=== PATIENT | female | born 1975 | race Caucasian/White ===

== ENCOUNTER 2021-08-08 20:59 | Emergency (ER) | payer SELFPAY ==
[~2021-08-08] VITALS: Ht 160 cm; Wt 68.0 kg
[~2021-08-08 20:59] MED LIST: CARI-277; MORP1TAB14; VENL150C3; ZOLP10TA; [UNRECOGNIZED DRUG - CODE]
[2021-08-08] MEDS ORDERED: KETOROLAC TROMETH 60MG/2ML VIAL IM ONE (21:30)
[2021-08-08 22:26] VITALS: BP 107/68
== END 2021-08-08 22:21 | disposition home or self-care (01) ==
LOC: ER 20:59
DX: S83.92XA Sprain of unspecified site of left knee, initial encounter (principal); F17.210 Nicotine dependence, cigarettes, uncomplicated; X50.0XXA Overexertion from strenuous movement or load, initial encounter; Y93.89 Activity, other specified; Y92.89 Other specified places as the place of occurrence of the external cause; Y99.8 Other external cause status
CPT/HCPCS: 73562; 96372; 99283; J1885

== ENCOUNTER 2021-10-08 00:01 | Emergency (ER) | payer SELFPAY ==
[~2021-10-08] VITALS: Ht 160 cm; Wt 62.6 kg
[2021-10-08 00:26] VITALS: BP 111/77
[2021-10-08 02:48] LABS: Basophils # (auto) 0 10 ^3/uL (0-0.2); Basophils % (auto) 0.5 % (0.0-2.0); Eosinophils # (auto) 0.2 10 ^3/uL (0-0.8); Eosinophils % (auto) 2.1 % (0.0-7.0); Hematocrit 38.7 % (36.0-46.0); Hemoglobin 12.7 g/dL (12.2-16.2); Lymphocytes # (auto) 3.3 10 ^3/uL (0.4-5.4); Lymphocytes % (auto) 33.5 % (10.0-50.0); Mean Corpuscular Hemoglobin 29.3 pg (28.0-32.0); Mean Corpuscular Hgb Conc. 32.8 g/dL (32.0-36.0); Mean Corpuscular Volume 89.3 fL (80.0-100.0); Monocytes # (auto) 0.8 10 ^3/uL (0-1.3); Monocytes % (auto) 8.4 % (0.0-12.0); Neutrophils # (auto) 5.5 10 ^3/uL (1.6-8.6); Neutrophils % (auto) 55.5 % (37.0-80.0); Red Blood Cells 4.34 10^6/uL (4.0-5.20); Red Cell Distribution Width 13.5 % (11.8-14.3); White Blood Cell 9.8 10^3/uL (4.4-10.8)
[2021-10-08 03:03] LABS: Albumin 3.5 g/dL (3.4-5.0); BUN/Creatinine Ratio 22.9; Calcium 9.9 mg/dL (8.5-10.1); Potassium 4.3 mmol/L (3.5-5.1)
[2021-10-08 03:06] LABS: Bilirubin, Total 0.2 mg/dL (0.2-1.0); Total Protein 6.4 g/dL (6.4-8.2)
[2021-10-08 03:08] LABS: Urine Bacteria NONE SEEN /hpf (None Seen); Urine Blood Negative /uL (Negative); Urine Specific Gravity 1.013 (1.001-1.035); Urine WBC <1 /hpf (0 - 5)
== END 2021-10-08 04:57 | disposition left against medical advice (07) ==
LOC: ER 00:01
DX: R10.30 Lower abdominal pain, unspecified (principal); Z53.21 Procedure and treatment not carried out due to patient leaving prior to being seen by health care provider
CPT/HCPCS: 36415; 80053; 81001; 81025; 83690; 85025

== ENCOUNTER 2021-10-18 22:07 | Emergency (ER) | payer SELFPAY ==
[~2021-10-18] VITALS: Ht 160 cm; Wt 65.3 kg
[2021-10-18 22:09] VITALS: BP 112/59
== END 2021-10-19 03:53 | disposition left against medical advice (07) ==
LOC: ER 22:07
DX: U07.1 COVID-19 (principal); R51.9 Headache, unspecified; M79.10 Myalgia, unspecified site; Z20.822 Contact with and (suspected) exposure to COVID-19
CPT/HCPCS: 36415; 87426

== ENCOUNTER 2023-02-04 12:26 | Emergency (ER) | payer MEDICAID, OTHER ==
[~2023-02-04] VITALS: Ht 160 cm; Wt 63.8 kg
[2023-02-04 14:51] VITALS: BP 108/72
[2023-02-04] MEDS ORDERED: ACET1CAP14 PO (15:30)
[2023-02-04] MEDS ORDERED: DexAMETHasone SOD PHOS 10MG/1ML VIAL INJ IM ONE (15:30)
[2023-02-04] MEDS ORDERED: ACETAMINOPHEN 500 MG TAB PO ONE (15:30)
[2023-02-04] MEDS ORDERED: PRED20TA2 PO (15:30)
[2023-02-04] MEDS ORDERED: KETOROLAC TROMETH 30 MG/ML 1ML VIAL IM ONE (15:45)
== END 2023-02-04 16:12 | disposition home or self-care (01) ==
LOC: ER 12:26
DX: G89.29 Other chronic pain (principal); M54.50 Low back pain, unspecified; F17.210 Nicotine dependence, cigarettes, uncomplicated; Z88.6 Allergy status to analgesic agent
CPT/HCPCS: 72131; 96372; 99285; J1100; J1885

== ENCOUNTER 2024-01-30 20:16 | Emergency (ER) | payer MEDICAID ==
[~2024-01-30] VITALS: Ht 160 cm; Wt 60.0 kg
[~2024-01-30 20:16] MED LIST changes: +ACET1CAP14 PO; +NITR-87 PO; +PRED20TA2 PO
[2024-01-30 21:12] LABS: Basophils # (auto) 0 10 ^3/uL (0-0.2); Basophils % (auto) 0.4 % (0.0-2.0); Eosinophils # (auto) 0 10 ^3/uL (0-0.8); Eosinophils % (auto) 0.2 % (0.0-7.0); Hematocrit 40.5 % (36.0-46.0); Hemoglobin 13.2 g/dL (12.2-16.2); Lymphocytes # (auto) 1.5 10 ^3/uL (0.4-5.4); Lymphocytes % (auto) 15.1 % (10.0-50.0); Mean Corpuscular Hemoglobin 29.4 pg (28.0-32.0); Mean Corpuscular Hgb Conc. 32.6 g/dL (32.0-36.0); Mean Corpuscular Volume 90.1 fL (80.0-100.0); Monocytes # (auto) 0.6 10 ^3/uL (0-1.3); Monocytes % (auto) 5.8 % (0.0-12.0); Neutrophils # (auto) 7.5 10 ^3/uL (1.6-8.6); Neutrophils % (auto) 78.5 % (37.0-80.0); Red Blood Cells 4.49 10^6/uL (4.0-5.20); Red Cell Distribution Width 13.3 % (11.8-14.3); White Blood Cell 9.6 10^3/uL (4.4-10.8)
[2024-01-30 21:27] LABS: Alanine Aminotransferase 20 U/L (7-40); Albumin 4.3 g/dL (3.2-4.8); Alkaline Phosphatase 92 U/L (46-116); Anion Gap 6 (5-15); Aspartate Aminotransferase 22 U/L (13-40); BUN/Creatinine Ratio 8.6 (10.0-20.0); Bilirubin, Total 0.3 mg/dL (0.2-1.0); Blood Alcohol < 3.0 mg/dL (<10); Blood Urea Nitrogen 6 mg/dL (9-23); Calcium 10.6 mg/dL (8.5-10.1); Carbon Dioxide 23 mmol/L (20-30); Chloride 109 mmol/L (98-107); Glucose 91 mg/dL (74-106); INR 1.02 (0.9-1.15); Potassium 3.7 mmol/L (3.5-5.1); Prothrombin Time 10.7 sec (9.3-11.8); Sodium 138 mmol/L (136-145)
[2024-01-30 21:28] LABS: Total Protein 6.5 g/dL (5.7-8.2)
[2024-01-30 21:38] LABS: Magnesium 2.1 mg/dL (1.6-2.6)
[2024-01-31] MEDS: ASPirin 325 MG TAB PO ONE (01:10)
[2024-01-31] MEDS: METOCLOPRAMIDE HCL 5MG/ml INJ 2ml VIAL IV ONE (01:10)
[2024-01-31 01:11] VITALS: BP 126/80; PULSE 78; RESP 19; TEMP 98.2; O2SAT 99
[2024-01-31] MEDS ORDERED: ACET500T58 PO (02:41)
== END 2024-01-31 03:14 | disposition home or self-care (01) ==
LOC: EDBD 20:16 → EDUNIT# 20:16 → ER 20:16
DX: R07.89 Other chest pain (principal); R10.2 Pelvic and perineal pain; R42 Dizziness and giddiness; T50.905A Adverse effect of unspecified drugs, medicaments and biological substances, initial encounter; F17.210 Nicotine dependence, cigarettes, uncomplicated; Z79.899 Other long term (current) drug therapy; Y92.9 Unspecified place or not applicable
CPT/HCPCS: 36415; 71045; 80053; 80320; 83605; 83735; 83880; 84484; 84702; 85025; 85379; 85610; 85730; 87040; 93005; 96374; 99285; J2765

== ENCOUNTER 2024-05-18 13:49 | Inpatient (IN) | payer MEDICAID ==
[~2024-05-18] VITALS: Ht 160 cm; Wt 66.1 kg
[~2024-05-18 13:49] MED LIST changes: +ACET500T58 PO
[2024-05-18 14:18] VITALS: PULSE 80; RESP 18; O2SAT 97
[2024-05-18] MEDS: DexAMETHasone SOD PHOS 10MG/1ML VIAL INJ IV ONE (14:59)
[2024-05-18] MEDS: ONDANSETRON HCL 4 MG/2 ML VIAL IV ONE (14:59)
[2024-05-18] MEDS: MORPHINE SULFATE 4 MG/ML SYR/VIAL IV ONE ×2 (14:59→18:04)
[2024-05-18 15:34] LABS: Basophils # (auto) 0 10 ^3/uL (0-0.2); Basophils % (auto) 0.7 % (0.0-2.0); Eosinophils # (auto) 0.1 10 ^3/uL (0-0.8); Hematocrit 37.6 % (36.0-46.0); Hemoglobin 12.6 g/dL (12.2-16.2); Lymphocytes # (auto) 1.3 10 ^3/uL (0.4-5.4); Lymphocytes % (auto) 25.7 % (10.0-50.0); Mean Corpuscular Hemoglobin 29.6 pg (28.0-32.0); Mean Corpuscular Hgb Conc. 33.5 g/dL (32.0-36.0); Mean Corpuscular Volume 88.4 fL (80.0-100.0); Monocytes # (auto) 0.6 10 ^3/uL (0-1.3); Monocytes % (auto) 11.6 % (0.0-12.0); Neutrophils # (auto) 3.2 10 ^3/uL (1.6-8.6); Nucleated Red Blood Cells % 0.1 %; Red Blood Cells 4.26 10^6/uL (4.0-5.20); Red Cell Distribution Width 13.9 % (11.8-14.3); White Blood Cell 5.2 10^3/uL (4.4-10.8)
[2024-05-18 15:46] LABS: Chloride 109 mmol/L (98-107); Potassium 3.4 mmol/L (3.5-5.1); Sodium 142 mmol/L (136-145)
[2024-05-18 15:47] LABS: Anion Gap 4 (5-15); Carbon Dioxide 29 mmol/L (20-30)
[2024-05-18 15:48] LABS: Calcium 10.3 mg/dL (8.7-10.4)
[2024-05-18 15:52] LABS: Glucose 89 mg/dL (74-106)
[2024-05-18 15:55] LABS: BUN/Creatinine Ratio 8.3 (10.0-20.0); Blood Urea Nitrogen < 5 mg/dL (9-23)
[2024-05-18] MEDS: NICOTINE 21MG/24 HR TOPICAL PATCH TD ONE (17:24)
[2024-05-18] MEDS: POTASSIUM CHL 20 Meq TABLET PO ONE (19:00)
[2024-05-18 19:52] LABS: Urine Bacteria FEW /hpf (None Seen); Urine Blood Negative /uL (Negative); Urine Clarity Turbid (Clear); Urine Color Yellow (Yellow); Urine Mucus FEW (None Seen); Urine Protein, UAD TRACE (Negative); Urine Specific Gravity 1.019 (1.001-1.035); Urine Urobilinogen Normal (Negative); Urine WBC 37 /hpf (0 - 5)
[2024-05-18 19:58] LABS: Amphetamine Screen, Urine Pos (NEGATIVE); Barbiturate Scree,Urine Neg (NEGATIVE); Benzodiazephine Screen, Urine Neg (NEGATIVE)
[2024-05-18 19:59] LABS: Cannabinoid Screen, Urine Pos (NEGATIVE); Cocaine Screen, Urine Neg (NEGATIVE); Opiate Scree,Urine Pos (NEGATIVE); Phencyclidine Screen, Urine Neg (NEGATIVE)
[2024-05-18 20:34] VITALS: PULSE 84; RESP 16; O2SAT 100
[2024-05-18] MEDS: ACETAMINOPHEN 325 MG TAB PO ONE (20:57)
[2024-05-18] MEDS ORDERED: ACETAMINOPHEN 325 MG TAB PO PRN (21:45)
[2024-05-18] MEDS: cefTRIAXone 1GM/50ML D5W 50 ML IV SCH (22:26)
[2024-05-18] MEDS: SODIUM CHLOR 0.9% PF (SALINE LOCK) 10ML VIAL/SYR IV SCH (22:28)
[2024-05-18] MEDS: LACTATED RINGER'S 1,000 ML IV ONE (22:28)
[2024-05-19] VITALS (8 sets, daily range): BP systolic 90–104; BP diastolic 52–69; PULSE 60–75; RESP 16–18; TEMP 97.7–98.1; O2SAT 96–100
[2024-05-19] MEDS: HYDROcodone-ACET 5/325MG TAB PO PRN (01:15)
[2024-05-19] MEDS: ENOXAPARIN SOD 40 MG/0.4 ML SYRINGE SC SCH (09:28)
[2024-05-19] MEDS: NICOTINE 21MG/24 HR TOPICAL PATCH TD ONE (16:17)
[2024-05-19] MEDS: ONDANSETRON HCL 4 MG/2 ML VIAL IV PRN (21:09)
[2024-05-20] VITALS (8 sets, daily range): BP systolic 90–119; BP diastolic 42–61; PULSE 57–80; RESP 16–20; TEMP 97.3–99; O2SAT 94–99
[2024-05-20] MEDS: NICOTINE 21MG/24 HR TOPICAL PATCH TD SCH (10:12)
[2024-05-20] MEDS: VENLAFAXINE HCL 37.5MG TABLET PO SCH (10:12)
[2024-05-20] MEDS: methylPREDNISolone SOD SUCC 1,000 MG in SODIUM CHL 0.9% 250 ML IV ONE (10:13)
[2024-05-20] MEDS: MORPHINE SULFATE INJ 2 MG/ml SYRG IV ONE (11:46)
[2024-05-21] VITALS (7 sets, daily range): BP systolic 97–107; BP diastolic 46–68; PULSE 53–82; RESP 17–19; TEMP 97.4–98.4; O2SAT 97–98
[2024-05-21] MEDS: methylPREDNISolone SOD SUCC 125 MG/2 ML VL ONE (11:51)
[2024-05-21] MEDS: methylPREDNISolone SOD SUCC 1,000 MG in SODIUM CHL 0.9% 250 ML IV SCH (12:08)
[2024-05-22] VITALS (7 sets, daily range): BP systolic 94–120; BP diastolic 45–66; PULSE 55–76; RESP 16–20; TEMP 97.1–98.6; O2SAT 96–100
[2024-05-22] MEDS: DOCUSATE SOD 100 MG CAP PO PRN (20:09)
[2024-05-23] VITALS (8 sets, daily range): BP systolic 95–115; BP diastolic 45–70; PULSE 54–76; RESP 16–22; TEMP 97.6–98.7; O2SAT 96–98
[2024-05-23 07:46] LABS: Alkaline Phosphatase 63 U/L (46-116); Anion Gap 2 (5-15); BUN/Creatinine Ratio 17.9 (10.0-20.0); Blood Urea Nitrogen 10 mg/dL (9-23); Calcium 10.5 mg/dL (8.7-10.4); Carbon Dioxide 29 mmol/L (20-30); Chloride 109 mmol/L (98-107); Glucose 106 mg/dL (74-106); Potassium 4.4 mmol/L (3.5-5.1); Sodium 140 mmol/L (136-145)
[2024-05-23 07:47] LABS: Albumin 3.4 g/dL (3.2-4.8); Aspartate Aminotransferase < 8 U/L (13-40); Bilirubin, Total 0.2 mg/dL (0.2-1.0)
[2024-05-23 07:48] LABS: Basophils # (auto) 0 10 ^3/uL (0-0.2); Eosinophils # (auto) 0 10 ^3/uL (0-0.8); Hematocrit 39.1 % (36.0-46.0); Hemoglobin 12.8 g/dL (12.2-16.2); Lymphocytes # (auto) 1.6 10 ^3/uL (0.4-5.4); Mean Corpuscular Hemoglobin 29.1 pg (28.0-32.0); Mean Corpuscular Hgb Conc. 32.7 g/dL (32.0-36.0); Mean Corpuscular Volume 88.9 fL (80.0-100.0); Monocytes # (auto) 0.4 10 ^3/uL (0-1.3); Monocytes % (auto) 3.4 % (0.0-12.0); Neutrophils # (auto) 9.7 10 ^3/uL (1.6-8.6); Neutrophils % (auto) 82.6 % (37.0-80.0); Red Cell Distribution Width 13.8 % (11.8-14.3); Total Protein 5.3 g/dL (5.7-8.2); White Blood Cell 11.7 10^3/uL (4.4-10.8)
[2024-05-23 07:50] LABS: Alanine Aminotransferase < 9 U/L (7-40)
[2024-05-24 05:00] VITALS: BP 110/69; PULSE 62; RESP 17; TEMP 98.2; O2SAT 95
[2024-05-24 08:00] VITALS: PULSE 50; PULSE 58; RESP 18; O2SAT 94
[2024-05-24 09:00] VITALS: BP 106/70; PULSE 58; RESP 18; TEMP 98; O2SAT 94
[2024-05-24] MEDS ORDERED: HYDR-4902 PO (10:07)
[2024-05-24] MEDS ORDERED: VENL75CA3 PO (10:07)
[2024-05-24] MEDS ORDERED: PRED20TA2 PO (10:07)
[2024-05-24] MEDS ORDERED: CIPR-173 PO (10:15)
[2024-05-24 12:51] VITALS: BP 106/70; PULSE 58; RESP 18; TEMP 36.7; O2SAT 94
[2024-05-24 13:00] VITALS: BP 106/56; PULSE 76; RESP 18; TEMP 98.6; O2SAT 96
== END 2024-05-24 14:55 | disposition home or self-care (01) | DRG 43 ==
LOC: EDBD 13:49 → ER 13:49 → TELE 21:33 → TELE-WESTW 05-19 02:58
PROVIDERS: ADMIT Internal Medicine; ATTEND Family Medicine
DX: G35 Multiple sclerosis (principal); N30.01 Acute cystitis with hematuria; F12.10 Cannabis abuse, uncomplicated; F15.10 Other stimulant abuse, uncomplicated; G89.29 Other chronic pain; F20.9 Schizophrenia, unspecified; F90.9 Attention-deficit hyperactivity disorder, unspecified type; F43.10 Post-traumatic stress disorder, unspecified; F32.A Depression, unspecified; F41.9 Anxiety disorder, unspecified; F17.210 Nicotine dependence, cigarettes, uncomplicated
CPT/HCPCS: 36415; 70450; 72131; 72148; 72192; 80048; 80053; 80307; 81001; 84702; 85025; 87086; 97110; 97116; 97163; 97530; G0378; J1100; J2405